=== PATIENT | male | born 1955 | race Caucasian/White ===

== ENCOUNTER 2017-12-26 09:42 | Day surgery (SDC) | payer MEDICARE ==
[2017-12-25 13:06] VITALS: BP 125/64
[2017-12-26] VITALS (16 sets, daily range): BP systolic 112–147; BP diastolic 40–84
[~2017-12-26] VITALS: Ht 177.8 cm; Wt 76.7 kg
[~2017-12-26 09:42] MED LIST: ASPI-1181 PO; LEVOFLOXACIN 500 MG/D5W 100 ML 100 ML IV SCH; LISI40TA4 PO; TAMS0.4C32 PO
[2017-12-26] MEDS ORDERED: LACTATED RINGERS 1000ML 1,000 ML IV ONE (11:41)
[2017-12-26] MEDS ORDERED: LEVOFLOXACIN 500 MG/D5W 100 ML 100 ML ONE (11:41)
[2017-12-26] MEDS ORDERED: MIDAZOLAM HCL 1 MG/ML 2ML VIAL ONE (11:59)
[2017-12-26] MEDS ORDERED: PROPOFOL 10 MG/ML 20ML VIAL IV ONE (11:59)
[2017-12-26] MEDS ORDERED: FENTANYL CITRATE PF 50 MCG/1 ML 2ML VIAL ONE ×2 (11:59→12:29)
[2017-12-26] MEDS ORDERED: MEPERIDINE-PF 25 MG/ML SYG ONE (13:19)
[2017-12-26] MEDS ORDERED: LEVO250T2 PO (14:38)
[2017-12-26] MEDS ORDERED: PHEN-934 PO (14:38)
[2017-12-26] MEDS ORDERED: TYL3 PO (14:38)
[2017-12-26] MEDS ORDERED: PHENAZOPYRIDINE HCL 200 MG TABLET PO ONE (15:50)
== END 2017-12-26 15:15 | disposition home or self-care (01) ==
LOC: DAH 09:42
PROVIDERS: ATTEND Urology
DX: N31.9 Neuromuscular dysfunction of bladder, unspecified (principal); N32.0 Bladder-neck obstruction; I10 Essential (primary) hypertension; I25.10 Atherosclerotic heart disease of native coronary artery without angina pectoris; Z98.890 Other specified postprocedural states; Z87.891 Personal history of nicotine dependence; Z88.0 Allergy status to penicillin; Z95.5 Presence of coronary angioplasty implant and graft
CPT/HCPCS: 52500; A4344; A4358; A4510; A4600; J1956; J2175; J2250; J2704; J3010 ×2; J7120 ×2